=== PATIENT | male | born 1970 | race Caucasian/White ===

== ENCOUNTER 2016-07-31 15:19 | Emergency (ER) | payer OTHER ==
[2016-07-31 16:02] VITALS: BP 123/81
--- NOTE | 2016-07-31 16:35 | UC ---
FLU HPI - HPI Summary HPI Summary: 2 weeks of worsening sinus pain last fe days has had fevers and body aches--- [place] in the past month and is concerned about Lyme - History of Current Complaint Chief Complaint: UCGeneralIllness Stated Complaint: FLU SYMPTOMS Time Seen by Provider: 07/31/16 16:34 Hx Obtained From: Patient Onset/Duration: Gradual Onset, Lasting Weeks - 2, Still Present, Worse Since - past 2 days Severity Currently: Moderate Severity Initially: Mild Pain Intensity: 6 Pain Scale Used: 0-10 Numeric Associated Signs & Symptoms: Positive: Fever - 100, Nasal Congestion, Headache - Allergy/Home Medications Allergies/Adverse Reactions: Allergies Allergy/AdvReac Type Severity Reaction Status Date / Time Fentanyl Allergy Severe See Comment Verified 12/09/15 15:49 Midazolam [From Versed] Allergy Severe See Comment Verified 12/09/15 15:49 Home Medications: Home Medications Phenylephrine-Chlorpheniramine [[place] Plus Cold & 5-2-10-325 mg] [History] PMH/Surg Hx/FS Hx/Imm Hx Previously Healthy: No Endocrine History Of: Denies: Diabetes Cardiovascular History Of: Denies: Pacemaker/ICD GI/ History Of: Reports: Kidney Stones - BILATERAL, BEING WATCHED, Renal Disease - Hx of Kidney Stones Neurological History Of: Reports: Seizures - ONE TIME WITH ANESTHETIC MEDICATION -03/2014 Other History Of: Negative For: Anticoagulant Therapy - Surgical History Surgical History: Yes Surgery Procedure, Year, and Place: 1986 LEFT KNEE SURGERY TO REMOVE BONE SPUR, [place]. 04/2012 CYSTOSCOPY, LEFT RETROGRADE PYELOGRAM, LEFT URETEROSCOPY, EXTRACTION OF CALCULUS FROM LEFT URETER, LEFT URETERAL STENT INSERTION, [facility] [place]. CYSTOSCOPY RIGHT RETROGRADE, RIGHT URETERAL CALCULUS MANIPULATION, STENT INSERTION, [facility] [place]. 05/30/2012 ESWL RIGHT RENAL CALCULUS., [facility] [place]. 03/2014 LITHOTRIPSY RIGHT SIDE FOR KIDNEY STONE, [facility] [place] - Family History Known Family History: Positive: Hypertension - Social History Occupation: Employed Full-time Lives: With Family Alcohol Use: Rare Substance Use Type: None Smoking Status (MU): Never Smoked Tobacco - Immunization History Most Recent Influenza Vaccination: NONE Most Recent Tetanus Shot: 05/07/2009 Most Recent Pneumonia Vaccination: NONE Review of Systems Constitutional: Fever, Fatigue Skin: Negative Eyes: Negative ENT: Nasal Discharge Respiratory: Negative Cardiovascular: Negative Gastrointestinal: Negative Genitourinary: Negative Motor: Negative Neurovascular: Negative Musculoskeletal: Negative, Myalgia - general body aches Neurological: Headache - frontal and maxillary sinus Psychological: Negative All Other Systems Reviewed And Are Negative: Yes Physical Exam Triage Information Reviewed: Yes Appearance: Well-Nourished, Ill-Appearing - mild, Pain Distress - mild Vital Signs: Initial Vital Signs Temp 99.0 F 07/31/16 15:56 Pulse 78 07/31/16 15:56 Resp 18 07/31/16 15:56 BP 123/81 07/31/16 15:56 Pulse Ox 97 07/31/16 15:56 Vital Signs Reviewed: Yes Eye Exam: Normal Eyes: Positive: Conjunctiva Clear. Negative: Conjunctiva Inflamed, Discharge ENT Exam: Normal ENT: Positive: Normal ENT inspection, Hearing grossly normal, Pharynx normal, Nasal congestion, Nasal drainage, TMs normal. Negative: Tonsillar swelling, Tonsillar exudate, Trismus, Muffled/hoarse voice Dental Exam: Normal Neck exam: Normal Neck: Positive: Supple, Nontender, No Lymphadenopathy Respiratory Exam: Normal Respiratory: Positive: Chest non-tender, Lungs clear, Normal breath sounds, No respiratory distress, No accessory muscle use Cardiovascular Exam: Normal Cardiovascular: Positive: RRR, No Murmur, Pulses Normal, Brisk Capillary Refill Musculoskeletal Exam: Normal Musculoskeletal: Positive: Strength Intact, ROM Intact, No Edema Neurological Exam: Normal Neurological: Positive: Alert, Muscle Tone Normal Psychological Exam: Normal Skin Exam: Normal Flu Course/Dx - Course Course Of Treatment: Lyme serology, augmentin, flonase, increase fluids follow with pcp - Differential Dx/Diagnosis Differential Diagnosis/HQI/PQRI: Pneumonia, RSV, Upper Respiratory Infection Provider Diagnoses: Acute Sinusitis Discharge - Discharge Plan Condition: Stable Disposition: HOME Prescriptions: Amoxicillin/Clavulanate TAB* [Augmentin TAB 875*] 875 mg PO BID #20 tab Fluticasone NASAL SPRAY 50MCG* [Flonase NASAL SPRAY 50MCG*] 2 spray BOTH NARES DAILY #1 btl Patient Education Materials: Lyme Disease (ED), Sinusitis (ED), How to Use Nasal Oscar (ED) Referrals: Diogo Ashby MD [Primary Care Provider] - 1 Week
== END 2016-07-31 17:00 | disposition home or self-care (01) ==
LOC: UCEAST 15:19
DX: J01.90 Acute sinusitis, unspecified (principal)
CPT/HCPCS: 86618; 99212; G0463

== ENCOUNTER 2018-01-03 07:25 | Observation (INO) | payer OTHER ==
[2018-01-03] MEDS ORDERED: Aspirin 81 mg CHEW TAB* 81 MG TAB.CHEW PO ONE (07:50)
--- NOTE | 2018-01-03 07:54 | ED ---
HPI Chest Pain - HPI Summary HPI Summary: This patient is a 33 year old M presenting to ED with a chief complaint of L- sided CP since 644. The patient had just woken up before onset. The CC is described as dull, intermittent, itchy, and squeezing sensation. The patient rates the pain 3/10 in severity. Symptoms aggravated by palpation. Symptoms alleviated by nothing. Patient reports nausea, diaphoresis, and L arm numbness. Denies PMHx. FHx includes CAD aunt (age 70), grandfather (in his 30s). The patient reports he is bradycardic (near the 40s) at baseline. - History of Current Complaint Chief Complaint: EDChestWallPain Hx Obtained From: Patient Onset/Duration: Started Hours Ago - since 644 this morning, Resolved Timing: Intermittent Initial Severity: Mild Pain Intensity: 3 Pain Scale Used: 0-10 Numeric Chest Pain Location: Left Lateral Character: Dull/Aching, Pressure/Squeezing, Other: - itchy Aggravating Factor(s): Other: - palpation Alleviating Factor(s): Nothing Associated Signs and Symptoms: Positive: Other: - Patient reports nausea, diaphoresis, and L arm numbness. - Allergy/Home Medications Allergies/Adverse Reactions: Allergies Allergy/AdvReac Type Severity Reaction Status Date / Time fentanyl Allergy Severe See Comment Verified 01/03/18 07:42 midazolam [From Versed] Allergy Severe See Comment Verified 01/03/18 07:42 Home Medications: Home Medications NK [No Home Medications Reported] 01/03/18 [History Confirmed 01/03/18] PMH/Surg Hx/FS Hx/Imm Hx Endocrine/Hematology History: Denies: Hx Anticoagulant Therapy, Hx Diabetes, Hx Anemia Cardiovascular History: Denies: Hx Pacemaker/ICD GI History: Reports: Other GI Disorders - ABD PAIN 2 MONTH AGO Denies: Hx Jaundice History: Reports: Hx Kidney Stones - BILATERAL, BEING WATCHED, Hx Renal Disease - Hx of Kidney Stones, Other Problems/Disorders - LITHOTRIPSY 2014 Musculoskeletal History: Reports: Hx Back Problems, Other Musculoskeletal History - OCCASIONAL BACK PAIN FROM KIDNEY STONES BILATERAL Sensory History: Denies: Hx Contacts or Glasses, Hx Eye Injury - Metal was removed from left eye in 2011, Hx Hearing Aid Opthamlomology History: Denies: Hx Contacts or Glasses, Hx Eye Injury - Metal was removed from left eye in 2011 Neurological History: Reports: Hx Headaches, Hx Seizures - ONE TIME WITH ANESTHETIC MEDICATION -03/2014 Psychiatric History: Denies: Hx Panic Disorder - Surgical History Surgery Procedure, Year, and Place: 1986 LEFT KNEE SURGERY TO REMOVE BONE SPUR, [place]. 04/2012 CYSTOSCOPY, LEFT RETROGRADE PYELOGRAM, LEFT URETEROSCOPY, EXTRACTION OF CALCULUS FROM LEFT URETER, LEFT URETERAL STENT INSERTION, [facility] [place]. CYSTOSCOPY RIGHT RETROGRADE, RIGHT URETERAL CALCULUS MANIPULATION, STENT INSERTION, [facility] [place]. 05/30/2012 ESWL RIGHT RENAL CALCULUS., [facility] [place]. 03/2014 LITHOTRIPSY RIGHT SIDE FOR KIDNEY STONE, [facility] [place] Hx Anesthesia Reactions: Yes - STATES SEIZURE WITH ANESTHETIC (?FENTANYL) Infectious Disease History: No Infectious Disease History: Denies: Hx Clostridium Difficile, Hx Hepatitis, Hx Human Immunodeficiency Virus (HIV), Hx Shingles, Hx Tuberculosis, Traveled Outside the in Last 30 Days - Family History Known Family History: Positive: Cardiac Disease - aunt (age 70), grandfather ( in his 30s), Hypertension - Social History Alcohol Use: Rare Substance Use Type: Reports: None Smoking Status (MU): Never Smoked Tobacco Review of Systems Positive: Skin Diaphoresis Positive: Chest Pain - L-sided Positive: Nausea Positive: Numbness - in the L arm All Other Systems Reviewed And Are Negative: Yes Physical Exam - Summary Physical Exam Summary: Appearance: Well appearing, no pain distress Skin: warm, dry, reflects adequate perfusion Head/face: normal Eyes: EOMI, CHRIS ENT: normal Neck: supple, non-tender Respiratory: CTA, breath sounds present Cardiovascular: bradycardia, pulses symmetrical Abdomen: non-tender, soft Bowel: present Musculoskeletal: normal, strength/ROM intact Neuro: normal, sensory motor intact, A&Ox3 Triage Information Reviewed: Yes Vital Signs On Initial Exam: Initial Vitals Temp Pulse Resp BP Pulse Ox 96.2 F 49 16 128/79 98 01/03/18 07:27 01/03/18 07:27 01/03/18 07:27 01/03/18 07:27 01/03/18 07:27 Vital Signs Reviewed: Yes Diagnostics - Vital Signs Vital Signs Temp Pulse Resp BP Pulse Ox 01/03/18 07:27 96.2 F 49 16 128/79 98 - Laboratory Result Diagrams: 01/03/18 08:28 09/26/18 08:28 Lab Statement: Any lab studies that have been ordered have been reviewed, and results considered in the medical decision making process. - Radiology CXR Radiology Interpretation Completed By: Radiologist - No evidence for acute intrathoracic disease. ED physician has reviewed this radiology report. - EKG 0736 Cardiac Rate: Bradycardia - 39 BPM EKG Rhythm: Sinus Bradycardia EKG Interpretation: early repolarization in the lateral leads 0852 Cardiac Rate: Bradycardia - 39 BPM EKG Rhythm: Sinus Bradycardia EKG Interpretation: No acute changes Re-Evaluation - Re-Evaluation First Eval Re-Evaluation Time: 09:16 Comment: Discussed with patient about consult with the electronic sensing equipment assembler Dr. Summers and plan to do a stress test. Second Eval Re-Evaluation Time: 13:13 Comment: Discussed plan for admission with the patient. Patient understands and agrees. Chest Pain Course/Dx - Course Assessment/Plan: This patient is a 33 year old M presenting to ED with a chief complaint of L-sided CP since 644. CXR reveals no evidence for acute intrathoracic disease. EKG done at 0736 shows sinus faiza at 39 BPM and early repolarization in the lateral leads. Repeat EKG done at 0852 shows sinus faiza at 39 BPM and no acute changes. In the ED course, the patient was given ASA, Motrin, and Nitro. Blood work/UA obtained. The patient will be admitted to Dr. Soni. Patient understands and agrees with this plan. - Chest Pain Differential Diagnosis/HQI/PQRI: Acute AL, ACS, Chest Wall, Other: - chest pain , symptomatic bradycardia, rule out ACS - Diagnoses Provider Diagnoses: Chest pain, Symptomatic bradycardia - Provider Notifications Discussed Care Of Patient With: Saige Summers Time Discussed With Above Provider: 07:51 Instructed by Provider To: Other - Consulted Dr. Summers who will come see the patient in the ED in about 5-[address] Summers in the ED at 0843 who recommends to give the patient a stress test. Talked with Dr. Wright at 1234 who said that the stress test could not be completed because the patient began feeling dizzy and started having CP. He says that the patient should be admitted. Consulted Dr. Ashby at 1315 who said to admit the patient and he will see the patient tomorrow. Consulted Dr. Kardon at 1320 who accepts the patient for admission. - Critical Care Time Critical Care Time: 30-74 min - 30 minutes Discharge - Sign-Out/Discharge Documenting (check all that apply): Patient Departure - Discharge Plan Condition: Stable Disposition: ADMITTED TO [facility] Referrals: Diogo Ashby MD [Primary Care Provider] - - Billing Disposition and Condition Condition: STABLE Disposition: Admitted to [facility] - Attestation Statements Document Initiated by Scribe: Yes Documenting Scribe: Demetrius Mansfield Provider For Whom [facility] is Documenting (Include Credential): Valeriy Albrecht MD Scribe Attestation: Demetrius Pete, scribed for Valeriy Albrecht MD on 01/03/18 at 1417. Scribe Documentation Reviewed: Yes Provider Attestation: The documentation as recorded by the Demetrius de leon accurately reflects the service I personally performed and the decisions made by , Valeriy Albrecht MD
[2018-01-03 08:40] LABS: ABS Basophils 0.1 10^3/ul (0-0.2); ABS Eosinophils 0.2 10^3/ul (0-0.6); ABS Monocytes 0.5 10^3/ul (0-0.8); ABS Neutrophils 3.1 10^3/ul (1.5-7.7); ABS Nucleated RBC 0 10^3/ul; Eosinophil % 3.6 % (0-6); Hematocrit 40 % (42-52); Hemoglobin 13.7 g/dl (14.0-18.0); Lymphocyte % 21.1 % (25-47); Mean Corpuscular HGB Conc 34 g/dl (31-36); Mean Corpuscular Hemoglobin 31 pg (27-31); Mean Corpuscular Volume 92 fL (80-94); Mean Platelet Volume 7.2 um3 (7.4-10.4); Nucleated Red Blood Cells % 0; Platelet Count 224 10^3/ul (150-450); Red Blood Count 4.39 10^6/ul (4.00-5.40); Red Cell Distribution Width 13 % (10.5-15); White Blood Count 4.9 10^3/ul (3.5-10.8)
--- NOTE | 2018-01-03 08:48 | RAD ---
Indication: Chest pain started this morning. Comparison: September 09, 2015 CT abdomen. Technique: Upright AP 0805 hours Report: Clear lungs and pleural spaces. Negative for pneumothorax. The heart, pulmonary vasculature, and mediastinal contours are unremarkable. Unremarkable osseous structures and soft tissue contours. IMPRESSION: #. No evidence for acute intrathoracic disease.
[2018-01-03] MEDS ORDERED: Nitroglycerin 0.1 mg/Hr PATCH* (2.5 MG) TRANSDERM ONE (08:52)
[2018-01-03 08:57] LABS: INR 0.93 (0.77-1.02)
[2018-01-03] MEDS ORDERED: Ibuprofen TAB* 800 MG PO ONE (08:57)
[2018-01-03] MEDS ORDERED: NS 0.9% 1000 ML* 1,000 ML IV ONE (14:29)
[2018-01-03] MEDS ORDERED: NS 0.9% 1000 ML* 1,000 ML IV SCH (15:45)
--- NOTE | 2018-01-03 18:12 | ECHO ---
Patient: JALEESA NGO [facility] Rec#: [id number] : 1970 Date: 01/03/2018 Age: 47y Height: 175 cm / 68.9 in Weight: 74.84 kg / 164.9 lbs Sex: M BSA: 1.9 Room#: -18 Admit Date#: 01/03/2018 Type: Inpatient Referring: Sherwin Genao MD Reading: Saige Summers MD Oceanographic Meteorologist: Marva Oswald RDCS CC: Diogo Ashby MD Transthoracic Echocardiogram Indication: Chest pain BP: 112/65 HR: 37 Rhythm: Bradycardia Findings History: Family history of CAD. Technical Comments: The study quality is good. Completed at 1640. Left Ventricle: The left ventricular chamber size is mildly dilated. There is no left ventricular hypertrophy. Global left ventricular wall motion and contractility are within normal limits. There is normal left ventricular systolic function. The estimated ejection fraction is 55-60%. Normal left ventricular diastolic filling is observed. Left Atrium: The left atrium is mildly dilated. Right Ventricle: Moderator Band present. The right ventricle is mildly dilated. The right ventricular global systolic function is normal. Right Atrium: The right atrium is mildly dilated. Aortic Valve: The aortic valve is trileaflet. There is no evidence of aortic valve thickening. There is no evidence of aortic regurgitation. There is no evidence of aortic stenosis. Mitral Valve: The mitral valve leaflets are mildly thickened. There is mild mitral regurgitation. There is no evidence of mitral stenosis. Tricuspid Valve: The tricuspid valve leaflets are normal. There is mild to moderate tricuspid regurgitation. The right ventricular systolic pressure is estimated at 26 mmHg. No pulmonary hypertension is noted. There is no tricuspid stenosis. Pulmonic Valve: The pulmonic valve appears normal. There is trace to mild pulmonic regurgitation. There is no pulmonic stenosis. Pericardium: There is no significant pericardial effusion. Aorta: There is no dilatation of the ascending aorta. There is no dilatation of the aortic arch. The aortic root is normal in size. Pulmonary Artery: The main pulmonary artery appears normal. Venous: The inferior vena cava appears normal in size. There is a greater than 50% respiratory change in the inferior vena cava dimension. Conclusions The left ventricular chamber size is mildly dilated. Global left ventricular wall motion and contractility are within normal limits. The estimated ejection fraction is 55-60%. The right ventricle is mildly dilated. The right ventricular global systolic function is normal. The left atrium is mildly dilated. The right atrium is mildly dilated. There is mild mitral regurgitation. There is mild to moderate tricuspid regurgitation. The right ventricular systolic pressure is estimated at 26 mmHg (normal). No prior echo to compare. Measurements Name Value Normal Range RVIDd (AP) 2D 2.8 cm (0.9 - 2.6) RVDdMajor (2D) 4.6 cm (2.2 - 4.4) RAd ISD 4CH 5.1 cm (3.4 - 4.9) RA (A4C)W 4.9 cm (2.9 - 4.6) IVSd (2D) 0.7 cm (0.6 - 1) LVPWd (2D) 0.7 cm (0.6 - 1) LVIDd (2D) 5.7 cm (3.6 - 5.4) LVIDs (2D) 3.2 cm - LV FS (2D) 45 % (25 - 45) Aortic Annulus 2.3 cm (1.4 - 2.6) Ao root diameter (2D) 2.9 cm (2.1 - 3.5) Ascending Ao 2.7 cm (2.1 - 3.4) Aortic arch 2.4 cm (1.8 - 3.4) LA dimension (AP) 2D 4 cm (2.3 - 3.8) LAd ISD 4CH 5 cm (2.9 - 5.3) LA ISD 4CH W 4.1 cm (2.5 - 4.5) Name Value Normal Range LA ESV BP (A/L) index 39 ml/m2 - Name Value Normal Range MV E-wave Vmax 0.7 m/sec - MV deceleration time 275 msec - MV A-wave Vmax 0.3 m/sec - MV E:A ratio 1.9 ratio - LV septal e' Vmax 0.12 m/sec - LV lateral e' Vmax 0.13 m/sec - LV E:e' septal ratio 5.83 ratio - LV E:e' lateral ratio 5.38 ratio - Name Value Normal Range AV Vmax 1.2 m/sec - AV VTI 30.3 cm - AV peak gradient 6 mmHg - AV mean gradient 4 mmHg - LVOT Vmax 0.9 m/sec - LVOT VTI 22 cm - LVOT peak gradient 4 mmHg - LVOT mean gradient 2 mmHg - CANDACE Vmax 1 m/sec - Name Value Normal Range TR Vmax 2.4 m/sec - TR peak gradient 23 mmHg - RAP 3 mmHg - RVSP 26 mmHg - IVC diameter 1.9 cm - Name Value Normal Range PV Vmax 1 m/sec - PV peak gradient 4 mmHg - IA end-diastolic Vmax 0.9 m/sec -
--- NOTE | 2018-01-03 19:19 | RAD ---
EXAM: US Duplex Bilateral Extracranial Arteries CLINICAL HISTORY: 47 years old, male; Signs and symptoms; Syncope and collapse; Additional info: Near syncope during stress test TECHNIQUE: Real-time duplex ultrasound scan of the extracranial arteries integrating B-mode two-dimensional vascular structure, Doppler spectral analysis and color flow Doppler imaging. COMPARISON: No relevant prior studies available. FINDINGS: Right common carotid artery: Unremarkable. No occlusion or significant stenosis on color flow and spectral Doppler imaging. Right internal carotid artery: Unremarkable. No occlusion or significant stenosis on color flow and spectral Doppler imaging. Right external carotid artery: Unremarkable. No occlusion or significant stenosis on color flow and spectral Doppler imaging. Right vertebral artery: Unremarkable. Antegrade flow. Right ICA/CCA ratio: 0.81. Within normal limits. Left common carotid artery: Unremarkable. No occlusion or significant stenosis on color flow and spectral Doppler imaging. Left internal carotid artery: Unremarkable. No occlusion or significant stenosis on color flow and spectral Doppler imaging. Left external carotid artery: Unremarkable. No occlusion or significant stenosis on color flow and spectral Doppler imaging. Left vertebral artery: Unremarkable. Antegrade flow. Left ICA/CCA ratio: 1.0. Within normal limits. Lymph nodes: Unremarkable. No lymphadenopathy. CAROTID STENOSIS REFERENCE USING SRU CRITERIA: Mild - <50% stenosis. ICA PSV is less than 125 cm/second and plaque or intimal thickening is visible. Moderate - 50-69% stenosis. ICA PSV is 125 to 230 cm/second and plaque is visible. Severe - 70-94% stenosis. ICA PSV is more than 230 cm/second and visible plaque with lumen narrowing is seen. Near occlusion - 95-99% stenosis. ICA PSV is variable and significant plaque with luminal narrowing is seen. Occluded - 100% stenosis. No flow identified. IMPRESSION: Normal duplex ultrasound of the neck.
[2018-01-03] MEDS: Ondansetron INJ* 2 MG/ML VIAL IV PRN (19:21)
[2018-01-03] MEDS: Acetaminophen TAB* 325 MG PO PRN (19:23)
--- NOTE | 2018-01-03 22:27 | HP ---
ADMISSION HISTORY AND PHYSICAL: DATE OF ADMISSION: 01/03/18 PRIMARY CARE PROVIDER: Dr. Ashby. HEALTHCARE PROXY: His , Arcelia, present during the interview. CODE STATUS: Full. SOURCE OF INFORMATION: History obtained from interview with the patient, discussion with Dr. Albrecht in the emergency room, and review of medical records including records stress test earlier today. RELIABILITY: Good. CHIEF COMPLAINT: Chest pain. HISTORY OF PRESENT ILLNESS: This is a 47-year-old man relatively healthy except for recurrent nephrolithiasis with multiple ureteroscopies and ureteral stents, who has had about 1-12 of fatigue and his stomach feeling again "off", decreased appetite, a little nausea, but no fevers, chills, night sweats , headaches, visual changes, sick contacts, rhinorrhea, sore throat, chest pain or shortness of breath. He woke this morning around 7 a.m. from sleep with left -sided substernal chest pain that was described as pounding, radiating to his left arm and elbow, that was described as approximately 5/10 in severity, it was associated with nausea with no emesis. No diaphoresis, lightheadedness, loss of consciousness, or shortness of breath. He proceeded with his to the emergency room via private vehicle, where he was evaluated and referred for exercise stress testing from the emergency room. During the course of the stress test, Dr. Wright notes that he was exercised to a Angel Luis protocol. He was able to exercise to 6 minutes and 7 seconds, but acutely stopped when he developed dizziness and nausea. Dr. Wright notes that he was less responsive and was not responding to Dr. Wright's request to straighten his arm. The patient's heart rate only reached to maximum of 56% with no EKG changes of ischemia, no arrhythmias, appropriate blood pressure increase. He had mild chest discomfort before starting the exercise, which was unchanged with exercise. The patient noted he had narrowing of his vision. He does not remember the episode where he became less responsive, but did recover after the stress test was stopped. The patient was seen by this author after the failed stress test was complicating intervening symptoms. The patient did reach maximum heart rate of 97 during the test with a target heart rate of 172. The patient notes that additionally he does travel frequently domestically, at least weekly. His last trip to [facility] last week, which he drove. He does have tick exposure and removed at least one in October for which he believes he was treated by Dr. Ashby. He has no no other known sick contacts. When seen by this author, chest discomfort had improved, although he did have some discomfort in his left arm. PAST MEDICAL HISTORY: Nephrolithiasis, ureteroscopy with approximately 3 to 4 stents, hernia repair. MEDICATIONS: None. No [id number] as well. ALLERGIES: FENTANYL and VERSED, which cause seizure like activity after OR procedure. FAMILY HISTORY: Mother with COPD. Paternal grandfather with CAD in his 70s. Maternal grandmother with CAD in her 70s. SOCIAL HISTORY: No tobacco. Several alcohol drinks per month. No illicits. 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 REVIEW OF SYSTEMS: As per HPI. Otherwise, all other systems were negative. PHYSICAL EXAMINATION GENERAL: Lying flat in bed, interactive, pleasant, in no apparent distress. VITAL SIGNS: In the emergency room, 120/58, heart rate was in 30s, increased to 60 with kicking of his legs for exercise, respiratory rate is 14, he is 97% on room air with a T-max of 96.2. HEENT: Oropharynx is clear. He has moist mucous membranes. Sclerae are anicteric. NECK: He has non-elevated JVD. No carotid bruit. No cervical or supraclavicular lymphadenopathy. LUNGS: His lungs are clear to auscultation. HEART: He has bradycardic heart rate with a regular rhythm. No murmurs, rubs or gallops. EXTREMITIES: Warm and well perfused without clubbing, cyanosis or edema. He has less than 2 seconds cap refill with strong peripheral pulses. NEUROLOGIC: He is alert and oriented x3. His cranial nerves II through XII are intact. DIAGNOSTIC STUDIES/LAB DATA: Labs reviewed, notable for creatinine of 1.38. Troponin I is 0.00 on two consecutive checks. Lactic acid is 0.7. Hemoglobin of 13.7, which is consistent with prior testing. Data reviewed, stress test as indicated in the body of this report. Chest x-ray, impression: No active cardiopulmonary disease. EKG: Sinus bradycardia rate of 39, normal limit axis and intervals, good R- wave progression. No ST or T-wave changes. No Q-waves. ASSESSMENT AND PLAN: This is a 47-year-old gentleman with insignificant past medical history presenting with chest pain. Hospital stay complicated by the incomplete stress test secondary to dizziness. 1. Chest pain. Unable to rule out underlying ischemic pathology, as the patient did not reach his target heart rate. He has two negative troponins at this point. I will admit to telemetry and continue to monitor. Check transthoracic echocardiogram as well as add on D-dimer. If D-dimer is elevated , we will check CTA of his chest to rule out PE, limiting forward flow or limiting cardiac output, which may have led to his dizziness during his stress test. I have placed a cardiac consultation for assistance and further ischemic evaluation in the setting of his exercise stress test, which required stopping due to his symptoms. 2. Bradycardia. The patient is noted to be bradycardic in the past when he has been hospitalized. 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 He is able to increase his heart rate with minimal exercise in the bed, so is not the etiology for his dizziness at this time. However, we will check Lyme serologies. He has noticed to have ticks on him in the past. He will have cardiac consultation and placed on telemetry. 3. Kidney injury. Unclear if acute and/or chronic. We will give a liter of normal saline overnight. Recheck BMP in the morning. 4. DVT prophylaxis. Low risk, ambulate ad-johnny, as well as JAYSHREE stockings. TIME SPENT: Greater than 60 minutes were spent on admission of this patient, greater than half of which spent at bedside discussing with the patient and his . [id number]/[facility] #: [id number] YOVANA
--- NOTE | 2018-01-04 07:49 | PN ---
Subjective - Subjective Reason for Note: Discharge Note History: Contingent Discharge Summary - depends upon results of todays investigations/ consultation I have reviewed Jaleesa Ngo presentation with the patient, Dr. Sherwin Genao in person and his written admitting H and P and also the electronic medical record. He has not felt well for 1 week. He has had no contacts with infection. He has traveled. 2 months ago he had a tick bite and was seen at my office and given doxycycline. He has maintained his exercise, but has had decreased tolerance. I note the episode during his attempted stress test yesterday. This morning he has a headache - bifrontal, with mild photophobia. He also has neck pain. He has no chest pain. He has no nausea/vomiting and he hasn't had a BM for a couple of days. He has no shortness of breath, palpitations. Active Problems: Active Problems Bradycardia (Acute) R00.1 Chest pain (Acute) R07.9 Headache (Acute 03/31/14) R51 DVT prophylaxis (Chronic 03/31/14) [id number] Full code status (Chronic 03/31/14) Z78.9 History of lithotripsy (Chronic 03/31/14) Z98.89 Nephrolithiasis (Chronic) N20.0 Current Medications: Current Medications Acetaminophen (Tylenol Tab*) 650 mg PO Q4H PRN PRN Reason: FEVER/PAIN Last Admin: 01/03/18 19:23 Dose: 650 mg Ondansetron HCl (Zofran Inj*) 4 mg IV Q4H PRN PRN Reason: NAUSEA Last Admin: 01/03/18 19:21 Dose: 4 mg Home Medications: Home Medications Medication Instructions Recorded Confirmed Type NK [No Home Medications Reported] 01/03/18 01/03/18 History Allergies: Allergies Allergy/AdvReac Type Severity Reaction Status Date / Time fentanyl Allergy Severe See Comment Verified 01/03/18 07:42 midazolam [From Versed] Allergy Severe See Comment Verified 01/03/18 07:42 Objective - Vital Signs Vital Signs: Vital Signs 01/03/18 01/03/18 01/03/18 07:42 08:00 08:12 Temperature Pulse Rate 47 43 42 Respiratory 17 17 15 Rate Blood Pressure 116/77 115/74 (mmHg) O2 Sat by Pulse 97 96 96 Oximetry 01/03/18 01/03/18 01/03/18 08:42 09:00 09:12 Temperature Pulse Rate 42 38 39 Respiratory 11 16 15 Rate Blood Pressure 108/63 108/71 (mmHg) O2 Sat by Pulse 97 97 98 Oximetry 01/03/18 01/03/18 01/03/18 09:42 10:00 10:03 Temperature Pulse Rate 37 41 43 Respiratory 14 15 12 Rate Blood Pressure 91/61 97/60 (mmHg) O2 Sat by Pulse 97 97 97 Oximetry 01/03/18 01/03/18 01/03/18 10:12 10:42 11:00 Temperature Pulse Rate 40 43 42 Respiratory 13 13 14 Rate Blood Pressure 97/59 100/59 (mmHg) O2 Sat by Pulse 97 98 96 Oximetry 01/03/18 01/03/18 01/03/18 11:12 12:56 13:00 Temperature Pulse Rate 38 40 40 Respiratory 13 12 16 Rate Blood Pressure 100/55 122/67 (mmHg) O2 Sat by Pulse 97 98 96 Oximetry 01/03/18 01/03/18 01/03/18 13:26 13:56 14:00 Temperature Pulse Rate 39 42 40 Respiratory 15 18 16 Rate Blood Pressure 106/62 103/65 (mmHg) O2 Sat by Pulse 96 96 97 Oximetry 01/03/18 01/03/18 01/03/18 14:27 14:54 15:00 Temperature Pulse Rate 36 36 37 Respiratory 12 14 14 Rate Blood Pressure 87/46 112/65 (mmHg) O2 Sat by Pulse 96 97 97 Oximetry 01/03/18 01/03/18 01/03/18 15:09 15:25 15:45 Temperature Pulse Rate 38 39 35 Respiratory 11 13 14 Rate Blood Pressure 103/64 120/58 98/60 (mmHg) O2 Sat by Pulse 97 97 97 Oximetry 01/03/18 01/03/18 01/03/18 16:00 16:14 16:25 Temperature 98.4 F Pulse Rate 38 39 38 Respiratory 14 15 15 Rate Blood Pressure 102/60 102/60 (mmHg) O2 Sat by Pulse 97 95 95 Oximetry 01/03/18 01/03/18 01/03/18 16:55 17:16 19:03 Temperature 97.4 F 97.4 F Pulse Rate 38 40 Respiratory 14 14 16 Rate Blood Pressure 115/67 101/55 (mmHg) O2 Sat by Pulse 99 99 Oximetry 01/04/18 01/04/18 00:10 03:51 Temperature 97.5 F 97.6 F Pulse Rate 39 Respiratory 18 16 Rate Blood Pressure 95/55 91/52 (mmHg) O2 Sat by Pulse 98 98 Oximetry - Intake and Output Intake and Output: Intake & Output 01/01/18 01/02/18 01/03/18 01/04/18 11:59 11:59 11:59 11:59 Intake Total 1920 Balance 1920 Weight 165 lb 168 lb 14.4 oz Intake: IV Fluids 1800 Oral 120 Other: Estimated Void Medium # Bowel Movements 0 # Voids 2 ADLs: Meal Record Start: 01/03/18 16: 28 Freq: DAILY@0900,1400,1800 Status: Active Protocol: Created 01/03/18 16:28 System (Rec: 01/03/18 16:28 System [id number]) Document 01/03/18 18:00 [id number] (Rec: 01/03/18 21:22 [id number]) Intake and Output Start: 01/03/18 07: 32 Freq: Status: Active Protocol: Created 01/03/18 07:32 System (Rec: 01/03/18 07:32 System [id number]) Intake and Output Start: 01/03/18 16: 28 Freq: DAILY@0600,1400,2200 Status: Active Protocol: Created 01/03/18 16:28 System (Rec: 01/03/18 16:28 System [email or web address]) Document 01/03/18 21:46 [id number] (Rec: 01/03/18 21:47 [id number] [email or web address]) Document 01/04/18 06:00 [id number] (Rec: 01/04/18 06:37 [id number]) - Physical Exam General Physical Exam Comment: warm and well perfused - hemodynamically stable. General: No Cyanosis, No Anemia, No Jaundice, No Clubbing Lungs and Chest: Yes: Chest Expansion Full, Chest Expansion Symetrica, Percussion Note Resonant, Vessicular Breath Sounds. No: Crackles, Wheezes, Respiratory Distress, Use of Accessory Muscles Heart Rate and Rhythm: Bradycardia JVP: Not Elevated Additional Cardiovascular: Yes: Normal Heart Sounds. No: Heart Murmur, Carotid Bruits, Pedal Edema Abdominal Exam: Yes: Soft, Bowel Sounds Present. No: Distention, Abdominal Mass , Hepatomegaly, Splenomegaly, Abdominal Tenderness, Guarding, Rebound Tenderness - Neuro Orientation: A/O x3 Speech: Normal Results - Results Lab Results: Laboratory Results - last 24 hr 01/03/18 01/03/18 01/03/18 08:28 08:28 08:28 WBC 4.9 RBC 4.39 Hgb 13.7 L Hct 40 L MCV 92 MCH 31 MCHC 34 RDW 13 Plt Count 224 MPV 7.2 L Neut % (Auto) 64.3 Lymph % (Auto) 21.1 L [place] % (Auto) 10.0 H Eos % (Auto) 3.6 Baso % (Auto) 1.0 Absolute Neuts (auto) 3.1 Absolute Lymphs (auto) 1.0 Absolute Monos (auto) 0.5 Absolute Eos (auto) 0.2 Absolute Basos (auto) 0.1 Absolute Nucleated RBC 0 Nucleated RBC % 0 INR (Anticoag Therapy) 0.93 APTT 28.5 D-Dimer, Quantitative Sodium 140 Potassium 4.3 Chloride 109 Carbon Dioxide 27 Anion Gap 4 BUN 19 Creatinine 1.38 H Est GFR ( Amer) 66.5 Est GFR (Non-Af Amer) 55.0 BUN/Creatinine Ratio 13.8 Glucose 99 Lactic Acid Calcium 8.9 Total Bilirubin 0.60 AST 34 ALT 37 Alkaline Phosphatase 68 Troponin I 0.00 Total Protein 6.4 Albumin 3.9 Globulin 2.5 Albumin/Globulin Ratio 1.6 01/03/18 01/03/18 01/03/18 08:28 11:25 15:47 WBC RBC Hgb Hct MCV MCH MCHC RDW Plt Count MPV Neut % (Auto) Lymph % (Auto) [place] % (Auto) Eos % (Auto) Baso % (Auto) Absolute Neuts (auto) Absolute Lymphs (auto) Absolute Monos (auto) Absolute Eos (auto) Absolute Basos (auto) Absolute Nucleated RBC Nucleated RBC % INR (Anticoag Therapy) APTT D-Dimer, Quantitative < 200 Sodium Potassium Chloride Carbon Dioxide Anion Gap BUN Creatinine Est GFR ( Amer) Est GFR (Non-Af Amer) BUN/Creatinine Ratio Glucose Lactic Acid 0.7 Calcium Total Bilirubin AST ALT Alkaline Phosphatase Troponin I 0.00 Total Protein Albumin Globulin Albumin/Globulin Ratio Radiology Results: Patient Name: JALEESA NGO Medical Record#: [id number] Ordering Physician: Valeriy Albrecht MD Acct.#: [id number] : 1970 Age: 47 Sex: M Location: EMERGENCY DEPARTMENT Exam Date: 01/03/18 0750 ADM Status: REG ER Order Information: CHEST AP PORTABLE Accession Number: [id number] CPT: 90272 Indication: Chest pain started this morning. Comparison: September 09, 2015 CT abdomen. Technique: Upright AP 0805 hours Report: Clear lungs and pleural spaces. Negative for pneumothorax. The heart, pulmonary vasculature, and mediastinal contours are unremarkable. Unremarkable osseous structures and soft tissue contours. IMPRESSION: #. No evidence for acute intrathoracic disease. <Electronically signed by Charly Reed MD in OV> 01/03/18843 Dictated By: Charly Reed MD Dictated Date/Time: 01/03/18843 Transcribed Date/Time: 01/03/18842 Copy to: Patient Name: JALEESA NGO Medical Record#: [id number] Ordering Physician: Sherwin Genao MD Acct.#: [id number] : 1970 Age: 47 Sex: M Location: [address] [place] [address]/TELEMETRY Exam Date: 01/03/18 1536 ADM Status: ADM Tomas Order Information: VL CAROTID BILATERAL Accession Number: [id number] CPT: 02420 EXAM: US Duplex Bilateral Extracranial Arteries CLINICAL HISTORY: 47 years old, male; Signs and symptoms; Syncope and collapse; Additional info: Near syncope during stress test TECHNIQUE: Real-time duplex ultrasound scan of the extracranial arteries integrating B-mode two-dimensional vascular structure, Doppler spectral analysis and color flow Doppler imaging. COMPARISON: No relevant prior studies available. FINDINGS: Right common carotid artery: Unremarkable. No occlusion or significant stenosis on color flow and spectral Doppler imaging. Right internal carotid artery: Unremarkable. No occlusion or significant stenosis on color flow and spectral Doppler imaging. Right external carotid artery: Unremarkable. No occlusion or significant stenosis on color flow and spectral Doppler imaging. Right vertebral artery: Unremarkable. Antegrade flow. Right ICA/CCA ratio: 0.81. Within normal limits. Left common carotid artery: Unremarkable. No occlusion or significant stenosis on color flow and spectral Doppler imaging. Left internal carotid artery: Unremarkable. No occlusion or significant stenosis on color flow and spectral Doppler imaging. Left external carotid artery: Unremarkable. No occlusion or significant stenosis on color flow and spectral Doppler imaging. Left vertebral artery: Unremarkable. Antegrade flow. Left ICA/CCA ratio: 1.0. Within normal limits. Lymph nodes: Unremarkable. No lymphadenopathy. CAROTID STENOSIS REFERENCE USING SRU CRITERIA: Mild - <50% stenosis. ICA PSV is less than 125 cm/second and plaque or intimal thickening is visible. Moderate - 50-69% stenosis. ICA PSV is 125 to 230 cm/second and plaque is visible. Severe - 70-94% stenosis. ICA PSV is more than 230 cm/second and visible plaque with lumen narrowing is seen. Near occlusion - 95-99% stenosis. ICA PSV is variable and significant plaque with luminal narrowing is seen. Occluded - 100% stenosis. No flow identified. IMPRESSION: Normal duplex ultrasound of the neck. This report is only to be considered final once signed by the Provider(s) as displayed in the "<Electronically Signed by >" field (s). Absence of a signature indicates the report is in a draft status and still needs to be finalized. In the event this document was created by someone other than the signing Provider, the individual initiating the document will be listed in the "Entered by:" or "Dictated by:" fan. 1 of 2 EKG Report: Sinus bradycardia: rate 39 NJ 185 QTc 415 QRS axis 57 early repolarization pattern. T lead III inverted Other Results/Reports: Transthoracic echocardiogram Conclusions The left ventricular chamber size is mildly dilated. Global left ventricular wall motion and contractility are within normal limits. The estimated ejection fraction is 55-60%. The right ventricle is mildly dilated. The right ventricular global systolic function is normal. The left atrium is mildly dilated. The right atrium is mildly dilated. There is mild mitral regurgitation. There is mild to moderate tricuspid regurgitation. The right ventricular systolic pressure is estimated at 26 mmHg (normal). Assessment - Problem List Assessment: Patient Problems Bradycardia (Acute) Chest pain (Acute) Headache (Acute 03/31/14) DVT prophylaxis (Chronic 03/31/14) Full code status (Chronic 03/31/14) History of lithotripsy (Chronic 03/31/14) Nephrolithiasis (Chronic) History of umbilical hernia repair (Chronic) Plan: Chest pain (Acute) This woke him yesterday. It is concerning given its location and radiation. He has no risk factors and his physically fit - he exercises daily with aerobic and strength training. His troponin I series is negative. His echocardiogram isn't completely normal - he has some dilation of LV and RV, but otherwise nothing specific. I have discussed his case with cardiology - for an nuclear medicine stress test which can be changed to a lexiscan if he doesn't tolerate the test. Bradycardia (Acute) I will check a TSH/FT4/T3 total. This is most likely vagal tone as he is physically fit. Headache (Acute 03/31/14) He also has some neck pain. He has been sick for for 1 week - possibly a viral syndrome of some sort. His lymphocyte% is reduced and his monocytes slightly elevated. I will check a CRP and sed rate. DVT prophylaxis (Chronic 03/31/14) Full code status (Chronic 03/31/14) History of lithotripsy (Chronic 03/31/14) Nephrolithiasis (Chronic) History of umbilical hernia repair (Chronic) I discussed the above with the patient and he agrees with the plan. He understands that if nothing is found and he is feeling improved, he will be able to go home for follow up as an outpatient.
[2018-01-04] MEDS: Acetaminophen TAB* 325 MG PO PRN (08:05)
[2018-01-04 08:11] LABS: EGFR Non-African American 62.2 (>60)
[2018-01-04] MEDS: Ondansetron INJ* 2 MG/ML VIAL IV PRN (09:33)
[2018-01-04 14:15] VITALS: BP 108/61
[2018-01-04] MEDS ORDERED: Regadenoson* 0.4 MG/5 ML SYRINGE ONE (14:21)
--- NOTE | 2018-01-04 14:21 | CONSULT ---
Subjective Date of Service: 01/04/18 Interval History: Admission Date: 01/03/18 Consult date 01/04/2018 PRIMARY CARE PROVIDER: Dr. Ashby. CHIEF COMPLAINT: Chest pain. Reason for consult: Chest pain HISTORY OF PRESENT ILLNESS: Ayo Aguayo is a 47 year old man who exercises regularly every day a week doing ellipitical and/or weight lifting. The night before admission he was doing several different tricep building weight lifting. He was admitted with fatigue, nausea, malaise. He developed headache while inpatient and still has this He had woke up day of admission left upper chest radiating to left arm felt like pounding. He has intermittent marked asymptomatic sinus bradycardia in setting of relatively young age, aerobic conditioning and what appears to be a high vagal tone. Yesterday he had a stress EKG in which he had to stop at 6 minutes due to confusion and narrowed vision. Today he had mild chest discomfort at baseline and treadmill was repeated. He had an entirely normal stress ekg with millan treadmill score of 15. His mild baseline chest discomfort resolved by stage II. The discomfort was not reproducible prior to this. . PAST MEDICAL HISTORY: Nephrolithiasis, ureteroscopy with approximately 3 to 4 stents hernia repair. Recent tick bite on doxycycline MEDICATIONS: None. ALLERGIES: FENTANYL and VERSED, which cause seizure like activity after OR procedure. FAMILY HISTORY: Mother with COPD. Paternal grandfather with CAD in his 70s. Maternal grandmother with CAD in her 70s. SOCIAL HISTORY: No tobacco. Several alcohol drinks per month. No illicits. 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 Medications Active Medications: Acetaminophen (Tylenol Tab*) 650 mg PO Q4H PRN PRN Reason: FEVER/PAIN Last Admin: 01/04/18 08:05 Dose: 650 mg Ondansetron HCl (Zofran Inj*) 4 mg IV Q4H PRN PRN Reason: NAUSEA Last Admin: 01/04/18 09:33 Dose: 4 mg Home Medications: NK [No Home Medications Reported] 01/03/18 [History Confirmed 01/03/18] Review of Systems - Measurements Intake and Output: Intake and Output Last 24 Hours 01/02/18 01/03/18 01/04/18 01/05/18 06:59 06:59 06:59 06:59 Intake Total 0 10 Balance 0 10 Weight 168 lb 14.4 oz Intake: IV Fluids 1800 10 Oral 120 Other: Estimated Void Medium # Bowel Movements 0 # Voids 2 - Review of Systems Constitutional Symptoms: Positive: Weakness, Fatigue Dermatology: Negative: Skin Lesions, Cancer HEENT: Negative: Change in Hearing, Vertigo Eyes: Negative: Change in Vision, Double Vision Thyroid: Negative: Cold Intolerance, Heat Intolerance, Sweatiness, Primary Hypothyroidism, Primary Hyperthyroidism Pulmonary: Negative: Cough, Sputum, Hemoptysis, Wheezing, Respiratory Distress, Shortness of Breath, COPD, Asthma, Exercise Intolerance, Home Oxygen Cardiology: Positive: Chest Pain Negative: Shortness of Breath, Palpitations, Swelling of Ankles, Peripheral Vascular Dis, Edema, Syncope, Claudication, Paroxysmal Nocturnal Dyspnea, Orthopnea Gastroenterology: Positive: Nausea, Anorexia Negative: Heartburn, Constipation, Diarrhea, Haematemesis, Melena Genital - Urinary: Negative: Dysuria, Hematuria Musculoskeletal: Negative: Joint Pain, Joint Stiffness Endocrinology: Positive: Thyroid Problems Negative: Obesity, Diabetes, Hyperglycemia, Hypoglycemia, Polydipsia, Polyuria Hematologic/Lymphatic: Negative: Use of Anticoagulant, Use of Antiplatelet Drugs Neurology: Positive: Headaches Negative: Change in Balancing, Change in Coordination, Change in Speech, Change in Sphincter Function, Change in Walking, Hx of Stroke\TIA, Hx Seizures Psychiatry: Negative: Unusual Anxiety, Suicidal Ideation Allergic/Immunologic: Negative: Hx Anaphylaxis, Hx Angioedema, Hx Environmental Allergies, Hx HIV, Immunocompromise Review of Systems Statement: All other review of systems negative, unless stated above. Objective Vital Signs: Temp Pulse Resp BP Pulse Ox 97.5 F 34 16 95/56 96 01/04/18 08:43 01/04/18 08:43 01/04/18 08:43 01/04/18 08:43 01/04/18 08:43 Oxygen Devices in Use Now: None Appearance: nad, pleasant Ears/Nose/Mouth/Throat: Clear Oropharnyx, Mucous Membranes Moist Neck: NL Appearance and Movements; NL JVP, Trachea Midline Respiratory: Symmetrical Chest Expansion and Respiratory Effort, Clear to Auscultation Cardiovascular: NL Sounds; No Murmurs; No JVD, RRR, No Edema Abdominal: NL Sounds; No Tenderness; No Distention Extremities: No Edema Skin: No Rash or Ulcers Neurological: Alert and Oriented x 3 Laboratory Results: 01/03/18 08:28 01/04/18 06:16 INR (Anticoag Therapy) 0.93 (0.77-1.02) 01/03/18 08:28 APTT 28.5 seconds (26.0-36.3) 01/03/18 08:28 Total Bilirubin 0.60 mg/dL (0.2-1.0) 01/03/18 08:28 AST 34 U/L (13-39) 01/03/18 08:28 ALT 37 U/L (7-52) 01/03/18 08:28 Alkaline Phosphatase 68 U/L (34-104) 01/03/18 08:28 Total Protein 6.4 g/dL (6.4-8.9) 01/03/18 08:28 Albumin 3.9 g/dL (3.2-5.2) 01/03/18 08:28 Globulin 2.5 g/dL (2-4) 01/03/18 08:28 Albumin/Globulin Ratio 1.6 (1-3) 01/03/18 08:28 TSH 1.65 mcIU/mL (0.34-5.60) 01/04/18 10:38 01/03/18 01/03/18 08:28 11:25 Troponin I 0.00 0.00 esr 8 10% monocytes (elevated) d-dimer < 200 Diagnostic Imaging: cxr admission: no acute findings echo 01/03/2018 (reviewed personally). Normal biventricular function, mild MR, mild-mod TR stress test today: normal stress ekg, DTS 14. MPI reviewed, mild inferior wall defect corrects on AC imaging (normal) EKG Data: ekg admission : sinus bradycardia 39 bpm, otherwise unremarkable Assessment/Plan Mr. Aguayo is being evaluated for chest pain and sinus bradycardia and symptoms yesterday. Ruled out for ACS and had normal stress test. - Episode yesterday on treadmill appeared not directly cardiac, likely related in part due to viral infection, may have been a vagal component. - Chest discomfort appears non-cardiac, likely musculoskeletal from weight lifting - Asymptomatic sinus bradycardia (see HPI) is not a concern. Avoid rate lowering agents - Patient can be discharged form a cardiac standpoint. Thank you for allowing me to participate in the cardiovascular care of this patient. Please do not hesitate to contact me with questions or concerns.
--- NOTE | 2018-01-04 14:56 | RAD ---
INDICATION: Chest pain. Bradycardia. COMPARISON: No relevant prior exams available on the [facility] – [place] PACS for comparison. TECHNIQUE: 10.420 mCi of Tc-99m Myoview were administered IV. SPECT images of the heart were obtained. Later on the same day. Under the direction of Dr. Blackman, an exercise stress test was performed. The patient achieved a peak heart rate of 161 bpm, 94 % of the age-predicted maximum. Subsequently, the patient was given an IV injection of 25.100 mCi Tc-99m Myoview. SPECT images of the heart were obtained and a gated wall motion study was performed. FINDINGS: Gated wall motion images were obtained at stress and demonstrate wall motion to be within normal limits. The calculated left ventricular ejection fraction is 64 % at stress. Estimated LEFT ventricular end diastolic volume is 130 mL. TID 0.96. Based on review of the attenuation corrected and non corrected images the distribution of radiopharmaceutical within the myocardium on the stress and rest images is within normal limits. No fixed or reversible regions of hypoperfusion evident. IMPRESSION: #. No compelling evidence for stress-induced ischemia or infarct. #. Dilated LEFT ventricle with estimated LEFT ventricular end-diastolic volume of 130 mL. #. Normal range estimated LEFT ventricular ejection fraction. ASSESSMENT: Low risk based on nuclear portion. Based on imaging criteria from ACC/AHA 2002 Guideline Update for the Management of Patients With Chronic Stable Angina Table 23. Noninvasive Risk Stratification.
--- NOTE | 2018-01-04 15:54 | PN ---
Progress Note - Progress Note Date of Service: 01/04/18 Note: Discharge Summary (continued). Investigations: TSH 1.65 FT4 0.79 T3 total 86 Cortisol 16.59 ESR 8 Patient Name: JALEESA NGO Medical Record#: [id number] Ordering Physician: Diogo Ashby MD Acct.#: [id number] : 1970 Age: 47 Sex: M Location: [address] [place] [address]/TELEMETRY Exam Date: 01/04/18 0808 ADM Status: ADM Tomas Order Information: NUCLEAR CARDIAC STRESS TEST Accession Number: [id number] CPT: 04092 INDICATION: Chest pain. Bradycardia. COMPARISON: No relevant prior exams available on the [facility] [place] PACS for comparison. TECHNIQUE: 10.420 mCi of Tc-99m Myoview were administered IV. SPECT images of the heart were obtained. Later on the same day. Under the direction of Dr. Blackman, an exercise stress test was performed. The patient achieved a peak heart rate of 161 bpm, 94 % of the age- predicted maximum. Subsequently, the patient was given an IV injection of 25.100 mCi Tc- 99m Myoview. SPECT images of the heart were obtained and a gated wall motion study was performed. FINDINGS: Gated wall motion images were obtained at stress and demonstrate wall motion to be within normal limits. The calculated left ventricular ejection fraction is 64 % at stress. Estimated LEFT ventricular end diastolic volume is 130 mL. TID 0.96. Based on review of the attenuation corrected and non corrected images the distribution of radiopharmaceutical within the myocardium on the stress and rest images is within normal limits. No fixed or reversible regions of hypoperfusion evident. IMPRESSION: #. No compelling evidence for stress-induced ischemia or infarct. #. Dilated LEFT ventricle with estimated LEFT ventricular end-diastolic volume of 130 mL. #. Normal range estimated LEFT ventricular ejection fraction. ASSESSMENT: Low risk based on nuclear portion. Based on imaging criteria from ACC/AHA 2002 Guideline Update for the Management of Patients With Chronic Stable Angina Table 23. Noninvasive Risk Stratification. <Electronically signed by Charly Reed MD in OV> 01/04/18 1453 Dictated By: Charly Reed MD Dictated Date/Time: 01/04/18 1453 Transcribed Date/Time: 01/04/18 1447 Copy to: CC:Diogo Ashby MD; Og Blackman DO; Sherwin Genao MD This report is only to be considered final once signed by the Provider(s) as displayed in the "<Electronically Signed by >" field (s). Absence of a signature indicates the report is in a draft status and still needs to be finalized. In the event this document was created by someone other than the signing Provider, the individual initiating the document will be listed in the "Entered by:" or "Dictated by:" fan. 1 of 2 Assessment/plan Chest pain is non-cardiac - the NM stress test was negative. Dr. Blackman has seen the patient in consultation and states this is non-cardiac. I have therefore discharged him home - he will follow up as an outpatient
== END 2018-01-04 16:20 | disposition home or self-care (01) ==
LOC: ED 07:25 → MEDTELE 15:37
PROVIDERS: ADMIT Internal Medicine; ATTEND Internal Medicine
DX: R07.9 Chest pain, unspecified (principal); R00.1 Bradycardia, unspecified; N17.9 Acute kidney failure, unspecified; I51.7 Cardiomegaly; Z88.5 Allergy status to narcotic agent; Z79.899 Other long term (current) drug therapy; R55 Syncope and collapse
CPT/HCPCS: 36415; 71045; 78452; 80048; 80053; 82533; 83605; 84439; 84443; 84479; 84484; 85025; 85379; 85610; 85652; 85730; 86618; 93005; 93017; 93306; 93880; 96361; 96374; 96376; 99284; A9270-GY; A9502; G0378; J2405; J2785

== ENCOUNTER 2019-06-09 09:00 | Observation (INO) | payer OTHER ==
[2019-06-09] MEDS ORDERED: Nitroglycerin TAB 0.4 MG* 0.4 MG TAB SL ONE (09:14)
[2019-06-09] MEDS ORDERED: Aspirin 81 mg CHEW TAB* 81 MG TAB.CHEW PO ONE (09:14)
--- NOTE | 2019-06-09 09:14 | ED ---
HPI Cardiac - HPI Summary HPI Summary: 48 y/o male presented to [facility] for chest pressure experienced 1 hour ago while in a cycling class. Pt endorses pain in his left arm, nausea, COMBS, and a sweet taste in the mouth but denies diaphoresis. Pt had a stress test in 2018 in which he passed out the first time but tried again the next day and successfully completed the test. Pt notes hx kidney stones and kidney surgery and denies hx of blood clots. He drinks alcohol occasionally, takes short flights about twice a week, and has taken NTG before. Pt notes fhx of OR in his father as well as his aunt, both of whom were in their 70s when OR occurred. Medications reviewed. Allergies noted. Home Medications Medication Instructions Recorded Confirmed Type Acetaminophen TAB* [Tylenol TAB*] 650 mg PO Q4H PRN tab 01/04/18 Rx Ibuprofen TAB* [Advil TAB*] 400 mg PO Q6H PRN 06/09/19 06/09/19 History - History of Current Complaint Chief Complaint: EDChestPainROMI Stated Complaint: CHEST PAIN/NAUSEA PER PT Time Seen by Provider: 06/09/19 09:07 Hx Obtained From: Patient Onset/Duration: Started Hours Ago Timing: Lasting Hours Current Severity: Moderate Pain Intensity: 4 Pain Scale Used: 0-10 Numeric Chest Pain Radiates To:: Arm - left Character: Pressure/Squeezing Aggravating Factor(s): Nothing Alleviating Factor(s): Nothing Associated Signs and Symptoms: Positive: Headaches, Nausea, Other: - positive - chest pressure, sweet taste in mouth; negative - diaphoresis - Additional Pertinent History Primary Care Physician: [id number] - Allergy/Home Medications Allergies/Adverse Reactions: Allergies Allergy/AdvReac Type Severity Reaction Status Date / Time fentanyl Allergy Severe See Comment Verified 06/09/19 09:17 midazolam [From Versed] Allergy Severe See Comment Verified 06/09/19 09:17 Home Medications: Home Medications Acetaminophen TAB* [Tylenol TAB*] 650 mg PO Q4H PRN tab 01/04/18 [Rx Confirmed 06/09/19] Ibuprofen TAB* [Advil TAB*] 400 mg PO Q6H PRN 06/09/19 [History Confirmed ] PMH/Surg Hx/FS Hx/Imm Hx Endocrine/Hematology History: Reports: Hx Thyroid Disease Denies: Hx Anticoagulant Therapy, Hx Diabetes, Hx Anemia Cardiovascular History: Denies: Hx Angina, Hx Coronary Artery Disease, Hx Hypercholesterolemia, Hx Hypertension, Hx Myocardial Infarction, Hx Pacemaker/ICD, Hx Peripheral Vascular Disease, Hx Valvular Heart Disease Respiratory History: Denies: Hx Asthma, Hx Chronic Obstructive Pulmonary Disease (COPD) GI History: Reports: Other GI Disorders - ABD PAIN 2 MONTH AGO Denies: Hx Jaundice History: Reports: Hx Kidney Stones - BILATERAL, BEING WATCHED, Hx Renal Disease - Hx of Kidney Stones, Other Problems/Disorders - LITHOTRIPSY 2014 Musculoskeletal History: Reports: Hx Back Problems, Other Musculoskeletal History - OCCASIONAL BACK PAIN FROM KIDNEY STONES BILATERAL Sensory History: Denies: Hx Contacts or Glasses, Hx Eye Injury - Metal was removed from left eye in 2011, Hx Hearing Aid Opthamlomology History: Denies: Hx Contacts or Glasses, Hx Eye Injury - Metal was removed from left eye in 2011 Neurological History: Reports: Hx Headaches Denies: Hx Seizures, Hx Transient Ischemic Attacks (TIA) Psychiatric History: Denies: Hx Panic Disorder - Surgical History Surgery Procedure, Year, and Place: 1986 LEFT KNEE SURGERY TO REMOVE BONE SPUR, [place]. 04/2012 CYSTOSCOPY, LEFT RETROGRADE PYELOGRAM, LEFT URETEROSCOPY, EXTRACTION OF CALCULUS FROM LEFT URETER, [place] [facility] [place] RIGHT RETROGRADE, RIGHT URETERAL CALCULUS MANIPULATION, [place] [facility] [place]2012 [place]SW[place] RIGHT [place] [facility] [place] KIDNEY STONE[place] [facility] [place] Anesthesia Reactions: Yes - STATES SEIZURE WITH ANESTHETIC (?FENTANYL) Infectious Disease History: No Infectious Disease History: Denies: Hx Clostridium Difficile, Hx Hepatitis, Hx Human Immunodeficiency Virus (HIV), Hx of Known/Suspected MRSA, Hx Shingles, Hx Tuberculosis, Traveled Outside the [place] in Last 30 Days - Family History Known Family History: Positive: Cardiac Disease - aunt (age 70), grandfather ( in his 30s), Hypertension - Social History Alcohol Use: Rare Substance Use Type: Reports: None Smoking Status (MU): Never Smoked Tobacco Review of Systems Negative: Skin Diaphoresis Positive: Other - sweet taste in mouth Positive: Other - chest pressure, left arm pain Positive: Nausea Positive: Headache All Other Systems Reviewed And Are Negative: Yes Physical Exam - Summary Physical Exam Summary: Constitutional: Well-developed, Well-nourished, Alert. (-) Distressed Skin: Warm, Dry HENT: Normocephalic; Atraumatic Eyes: Conjunctiva normal Neck: Musculoskeletal ROM normal neck. (-) JVD, (-) Stridor, (-) Tracheal deviation Cardio: Rhythm regular, rate normal, Heart sounds normal; Intact distal pulses; Radial pulses are 2+ and symmetric. (-) Murmur Pulmonary/Chest wall: Effort normal. (-) Respiratory distress, (-) Wheezes, (-) Rales Abd: Soft, (-) tenderness, (-) Distension, (-) Guarding, (-) Rebound Musculoskeletal: (-) Edema, Good pulses bilaterally in radius, No calf tenderness, No venous cords, No pain with dorsiflexion of foot. Lymph: (-) Cervical adenopathy Neuro: Alert, Oriented x3 Psych: Mood and affect Normal Triage Information Reviewed: Yes Vital Signs On Initial Exam: Initial Vitals Temp Pulse Resp BP Pulse Ox 98.2 F 60 12 151/74 98 06/09/19 09:01 06/09/19 09:01 06/09/19 09:01 06/09/19 09:01 06/09/19 09:01 Vital Signs Reviewed: Yes Procedures - Sedation Patient Received Moderate/Deep Sedation with Procedure: No Diagnostics - Vital Signs Vital Signs Temp Pulse Resp BP Pulse Ox 06/09/19 09:01 98.2 F 60 12 151/74 98 - Laboratory Result Diagrams: 06/09/19 09:16 06/09/19 09:16 Lab Statement: Any lab studies that have been ordered have been reviewed, and results considered in the medical decision making process. - Radiology cxr Radiology Interpretation Completed By: Radiologist Summary of Radiographic Findings: IMPRESSION: No radiographic evidence of acute cardiopulmonary disease. This report was reviewed by the ED physician. - EKG 09 Cardiac Rate: Bradycardia EKG Rhythm: Sinus Bradycardia Summary of EKG Findings: EKG at 905 shows sinus bradycardia at 59bpm. T-wave inversions in III, similar to prior. Flatterning in avF. Otherwise unchanged from prior on 01/03/18. No STEMI. This EKG was reviewed and interpreted by the ED physician. Re-Evaluation - Re-Evaluation First Eval Re-Evaluation Time: 09:44 Comment: Prior to receiving NTG pt complained of severe COMBS he has had before. After NTG chest pressure improved. Will give Morphine and Zofran for COMBS and nausea. Disposition - Course Course Of Treatment: Patient is here with chest pain that reduced on his left arm that occurred during exertion. Patient was given nitroglycerin with improvement in his symptoms. Patient was also given aspirin here. Patient is PERC negative and his story is not consistent with dissection. Patient had an EKG which showed new T-wave flattening in aVF. Given patient's heart score of 4 , patient was admitted to the hospital for further workup. - Diagnoses Provider Diagnoses: Chest pain - Physician Notifications Discussed Care Of Patient With: Chata Polanco Time Discussed With Above Provider: 11:20 Instructed by Provider To: Other - Pt case was discussed with Dr. Polanco, who agreed to admit the pt. Discharge ED - Sign-Out/Discharge Documenting (check all that apply): Patient Departure - admit - Discharge Plan Condition: Stable Disposition: ADMITTED TO [facility] - Billing Disposition and Condition Condition: STABLE Disposition: Admitted to [facility] - Attestation Statements Document Initiated by Scribe: Yes Documenting Scribe: Osmani Cooney Provider For Whom Herlindae is Documenting (Include Credential): Desmond Medina MD Scribe Attestation: Osmani Pete, scribed for Desmond Medina MD on 06/09/19 at 1803. Scribe Documentation Reviewed: Yes Provider Attestation: The documentation as recorded by the Osmani de leon accurately reflects the service I personally performed and the decisions made by me, Desmond Medina MD Status of Scribe Document: Viewed
[2019-06-09 09:26] LABS: ABS Eosinophils 0.1 10^3/ul (0-0.6); ABS Lymphocytes 0.7 10^3/ul (1.0-4.8); ABS Monocytes 0.4 10^3/ul (0-0.8); ABS Neutrophils 9.3 10^3/ul (1.5-7.7); Eosinophil % 0.6 %; Hematocrit 41 % (42-52); Hemoglobin 14.5 g/dL (14.0-18.0); Lymphocyte % 7.1 %; Mean Corpuscular HGB Conc 35 g/dL (31-36); Mean Corpuscular Hemoglobin 32 pg (27-31); Mean Corpuscular Volume 89 fL (80-94); Mean Platelet Volume 7.2 fL (7.4-10.4); Platelet Count 261 10^3/uL (150-450); Red Cell Distribution Width 13 % (10-15); White Blood Count 10.5 10^3/uL (3.5-10.8)
[2019-06-09] MEDS ORDERED: NS 0.9% 1000 ML** 1,000 ML IV ONE (09:32)
[2019-06-09] MEDS ORDERED: Morphine 4 MG/ML VIAL (1 ml) 4 MG/ML VIAL IV ONE ×2 (09:32→23:06)
[2019-06-09] MEDS ORDERED: Ondansetron INJ* 2 MG/ML VIAL IV ONE (09:36)
[2019-06-09 09:47] LABS: Albumin 4.4 g/dL (3.2-5.2); Albumin/Globulin Ratio 1.7 (1-3); BUN/Creatinine Ratio 14.5 (8-20); Calcium 9.6 mg/dL (8.6-10.3); EGFR African American 53.5 (>60); EGFR Non-African American 44.3 (>60); Globulin 2.6 g/dL (2-4); Potassium 3.6 mmol/L (3.5-5.0); Total Bilirubin 0.6 mg/dL (0.2-1.0)
[2019-06-09] MEDS ORDERED: NS 0.9% 1000 ML** 1,000 ML IV SCH (11:30)
[2019-06-09] MEDS: Acetaminophen TAB* 325 MG PO PRN ×2 (13:01→20:09)
[2019-06-09] MEDS: Enoxaparin(*) 40 MG/0.4 ML SYR SUBCUT SCH (13:02)
--- NOTE | 2019-06-09 15:52 | HP ---
CC: Diogo Ashby MD * HISTORY AND PHYSICAL: DATE OF ADMISSION: 06/09/19 PRIMARY CARE PROVIDER: Diogo Ashby MD ATTENDING PHYSICIAN: Chata Polanco DO * (dictated by ROBERT Phan). CHIEF COMPLAINT: 1. Chest pain. 2. Dizziness. 3. Nausea. HISTORY OF PRESENT ILLNESS: Mr. Aguayo is a 48-year-old male with nephrolithiasis only that required 3 to 4 stents in the past, who presented to the ER today with complaints of chest pressure. He reports that he has had intermittent chest pressure for approximately 1 week. This morning, he was at the gym, riding a bicycle with moderate intensity and suddenly developed chest pressure, nausea, and dizziness. He stopped using the bicycle, at which point he reports that his pain worsened. He drove home and then his drove him to the hospital. He reports that he developed a headache upon arrival to the ER. He reports that his chest pressure radiates down the left arm and up the neck, but does not reach the jaw. He received nitro, morphine, ondansetron, and aspirin in ER and believes that nitro helped with his pain. He does report that the pain worsened when he stopped riding his bike. The patient reports weekly airplane travel to [place] and back. He reports that his pain is nonpleuritic. He does not have any new medications. He reports that he had pain similar to this in 2018 without nausea and received a full workup at that time. In December 2017, transthoracic echo showed EF of 55% to 60%, normal LV diastolic filling pattern, no regional wall motion abnormalities. Nuclear medicine stress test shows dilated LV without evidence of ischemia and was reportedly low risk. HEART score today is calculated to be 4, a moderate score placing him at risk of may be between 12% to 16.6%. In the ER, the patient received a full workup. CBC was unremarkable. Creatinine was mildly elevated at 1.66 (baseline is approximately 1.30). Troponin is 0.00 x1. EKG shows a rate of 59 with T-wave inversions in lead III and V1 which are unchanged from December 2017. AVF has a flat T-wave which is new compared to 2018 EKG. Chest x-ray was unremarkable. In the ER, the patient received aspirin 324 mg p.o., morphine 4 mg IV, nitroglycerin 0.4 mg sublingual, ondansetron 4 mg IV, and 1 L normal saline bolus. Hospitalist team was asked to evaluate the patient for admission. PAST MEDICAL HISTORY: History of nephrolithiasis, requiring 3 to 4 stents; he follows with Dr. Brennan. PAST SURGICAL HISTORY: Hernia, multiple ureteral stents. HOME MEDICATIONS: 1. Acetaminophen 650 mg p.o. q.4 hours p.r.n. pain. 2. Ibuprofen 400 mg p.o. q.6 hours p.r.n. pain. DRUG ALLERGIES: FENTANYL, dystonia; MIDAZOLAM, dystonia. FAMILY HISTORY: Mother had COPD. Father unknown. Paternal grandfather had diabetes and in his 70s from CAD. Paternal grandmother had diabetes and in her 80s from CAD; paternal grandmother also had colon cancer. Maternal grandmother in her 70s from CAD. Maternal grandfather in 60s from CAD. SOCIAL HISTORY: The patient denies current or former use of tobacco. He drinks socially, less than weekly. He does not use any illicit drugs. 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 He is relatively active. He notes that he works out 6 to 7 times per week until the last approximately 2 months where he reports new onset of low energy and has been working out 2 to 3 times per week the last 2 months. He is , with 2 children. In the event that he is unable to make his own medical decisions, he has appointed his , Arcelia Aguayo, to be his surrogate decision maker. REVIEW OF SYSTEMS: A 14-point review of systems has been performed and all the pertinent positives and negatives are in the HPI. All other systems are negative. PHYSICAL EXAMINATION GENERAL: Mr. Aguayo is a well-developed, well-nourished, slightly overweight middle-aged white male, who is sitting up in bed. He appears mildly uncomfortable and is squinting when we speak. He does not appear to be in any acute distress and is breathing comfortably on room air. HEENT: PERRL. EOMI. Visual fan are grossly intact, although the patient does report diplopia, which he reports is his baseline. Hearing is grossly intact. Oral mucous membranes are moist. There are no lesions. The pharynx is clear without exudate or erythema. Tongue is at midline. Palate elevates symmetrically. PULMONARY: Symmetrical chest expansion without use of accessory muscles. Lungs are clear to auscultation bilaterally without rhonchi, wheeze, or rales. CARDIOVASCULAR: Sinus bradycardia. S1 and S2 present without murmurs, rubs, clicks, or gallops. There is no JVD. There is no lower extremity edema. Chest wall nontender to palpation. ABDOMEN: Bowel sounds in all quadrants. Soft and nontender to palpation. MUSCULOSKELETAL: Full range of motion, nonpainful, nontender to palpation. NEUROLOGIC: The patient is awake. He is alert and oriented x3. Cranial nerves II through XII are grossly intact. He is able to move all of his extremities. Motor strength is 5/5 bilaterally in upper and lower extremities. DIAGNOSTIC STUDIES/LAB DATA: 1. CBC: WBC 10.5, RBC 4.6, hemoglobin 14.5, hematocrit 41, MCV 89, platelets 261. 2. CMP: Sodium 140, potassium 3.6, chloride 106, carbon dioxide 28, BUN 24, creatinine 1.66, glucose 116. Troponin 0.00. 3. EKG, rate 59, T-wave inversion in lead III and V1 (unchanged from December 2017), flat T-wave in aVF (new). 4. Chest x-ray, impression: No radiographic evidence of acute cardiopulmonary disease. ASSESSMENT AND PLAN: Mr. Aguayo is a 48-year-old male with a family history of due to coronary artery disease and no significant past medical history , who presented to the ER today with complaints of chest pain brought on by exercise. The patient will be admitted for: 1. Chest pain, rule out acute coronary syndrome. The patient presents with chest pain brought on by exercise that he reports was worsened with discontinuation of exercise and relieved after nitro. He reports weekly airplane travel. He has no past medical history. He appears to be relatively active and exercises 2 to 3 times per week. Cardiac exam is benign except for sinus bradycardia, which appears to be at the patient's baseline. He will be admitted and we will work up acute coronary syndrome rule out. Stress test will be performed in the morning. We will continue to trend troponins and repeat an EKG in the morning. He will continue aspirin 81 mg daily starting tomorrow; he has received 324 mg p.o. today. He will be admitted on telemetry. Due to the patient's frequent travel, there is some concern for pulmonary embolism despite the patient's relative bradycardia and nonpleuritic chest pain. A D-dimer will be added on to today's labs. We will also risk stratify with hemoglobin A1c and lipids in the morning. 2. Acute kidney injury on chronic kidney disease. The patient has a mild acute kidney injury. It appears that he has baseline chronic kidney disease with baseline creatinine of around 1.30. Today's creatinine is 1.66. He has received 1 L of fluid bolus. I will continue him on 1 L of maintenance fluids at 100 cc per hour and then discontinue IV fluids. We should recheck creatinine in the a.m. to assess for improvement in renal function. 3. History of nephrolithiasis. The patient reports history of nephrolithiasis , but is asymptomatic at this time. He follows with Dr. Brennan. 4. DVT prophylaxis: According to the DVT Risk Assessment, the patient scores 2 , placing him at moderate risk. He has been started on Lovenox. 5. Code status: Full code. TIME SPENT: Approximately 60 minutes was spent on this admission, greater than half that time was spent [id number] with the patient and his obtaining history, performing physical, and reviewing the plan of care. The case has been discussed with my attending, Dr. Polanco, who is in agreement with the plan of care. ROBERT KEYS [id number]/[facility] #: [id number] YOVANA
[2019-06-09] MEDS ORDERED: Ibuprofen TAB* 600 MG PO ONE (16:17)
[2019-06-09] MEDS ORDERED: Morphine INJ* 4 MG/ML 1 ML SYRINGE (NEW SYRINGE VERSION) IV ONE (23:10)
[2019-06-09] MEDS ORDERED: Ondansetron INJ* 2 MG/ML VIAL IV PRN (23:12)
--- NOTE | 2019-06-09 23:41 | PN ---
Hospitalist Progress Note Date of Service: 06/09/19 Called to bedside for bradycardia and chest pain. Patient hr 39. Denies sob, denies lightheadedness, denies dizziness. Admits to left sided chest pain. He denies sob, denies diaphoresis, denies nausea. He states that the pain has been intermittent for the last week. Admits to numbness in the left arm, It is 9/10. Repeat EKG ordered unchanged, [facility] he has longstanding bradycardia. BP stable in both arms, dimer negative, having a frontal headache as well, will repeat trops, will check ct brain and give 4 mg morphine for the chest pain, etiology of the chest pain unclear, however i am reassures given the three negative trops and non evolving ekg, will try morphine now, stress ordered for the am, discuss with Dr waldron she is in agreement,
[2019-06-10] MEDS: Acetaminophen TAB* 325 MG PO PRN ×3 (00:11→13:33)
[2019-06-10] MEDS ORDERED: Morphine INJ* 2 MG/ML 1 ML SYRINGE (TWO MG - NEW SYRINGE VERSION) IV ONE (05:12)
[2019-06-10 05:34] LABS: BUN/Creatinine Ratio 16.7 (8-20); Calcium 8.3 mg/dL (8.6-10.3); EGFR African American 66.3 (>60); EGFR Non-African American 54.8 (>60); HDL Cholesterol 35.8 mg/dL; Potassium 3.8 mmol/L (3.5-5.0)
--- NOTE | 2019-06-10 07:17 | PN ---
Subjective - Subjective Reason for Note: Discharge Note History: Discharge summary: I obtained his presentation from Jaleesa Ngo and ROBERT Naik's admitting history and physical. He travels every week for work and was in [place] last week. The night before presentation he ate yoruba toast for dinner. Yesterday, he had no breakfast and headed for the gym. He had some chest pressure. This worsened during treadmill exercise - heart rate 140 bpm. He developed nausea and sweating, the pressure was 8/10 and radiated to his left arm. He had a stomach ache and nausea. He developed a headache in the Emergency Room but maintains this was prior to receiving nitroglycerine. This morning he is feeling well and without any chest pain, dyspnea, palpitations, nausea. His headache has improved. He has a sinus bradycardia on telemetry in the 30s. Current Medications: Current Medications Acetaminophen (Tylenol Tab*) 650 mg PO Q4H PRN PRN Reason: mild to moderate pain Last Admin: 06/10/19 00:11 Dose: 650 mg Aspirin (Aspirin 81 Mg Chew Tab*) 81 mg PO DAILY EDNA Enoxaparin Sodium (Lovenox(*)) 40 mg SUBCUT Q24H EDNA Last Admin: 06/09/19 13:02 Dose: 40 mg Ondansetron HCl (Zofran Inj*) 4 mg IV Q6H PRN PRN Reason: NAUSEA Last Admin: 06/09/19 23:20 Dose: 4 mg Home Medications: Home Medications Medication Instructions Recorded Confirmed Type Acetaminophen TAB* [Tylenol TAB*] 650 mg PO Q4H PRN tab 01/04/18 06/09/19 Rx Ibuprofen TAB* [Advil TAB*] 400 mg PO Q6H PRN 06/09/19 06/09/19 History Allergies: Allergies Allergy/AdvReac Type Severity Reaction Status Date / Time fentanyl Allergy Severe See Comment Verified 06/09/19 09:17 midazolam [From Versed] Allergy Severe See Comment Verified 06/09/19 09:17 Objective - Vital Signs Vital Signs: Vital Signs 06/09/19 06/09/19 06/09/19 09:01 09:12 09:13 Temperature 98.2 F Pulse Rate 60 56 Respiratory 12 17 18 Rate Blood Pressure 151/74 135/81 (mmHg) O2 Sat by Pulse 98 96 Oximetry 06/09/19 06/09/1906/08/20 09:28 09:38 09:41 Temperature Pulse Rate 58 52 Respiratory 23 21 18 Rate Blood Pressure 115/65 126/73 (mmHg) O2 Sat by Pulse 94 95 Oximetry 06/09/19 06/09/19 06/09/19 09:48 09:58 10:00 Temperature Pulse Rate 57 52 50 Respiratory 20 14 18 Rate Blood Pressure 107/70 121/73 (mmHg) O2 Sat by Pulse 95 96 96 Oximetry 06/09/19 06/09/19 06/09/19 10:08 10:18 10:28 Temperature Pulse Rate 48 50 Respiratory 15 25 Rate Blood Pressure 112/60 113/67 109/68 (mmHg) O2 Sat by Pulse 94 95 Oximetry 06/09/19 06/09/19 06/09/19 10:38 10:48 11:00 Temperature Pulse Rate 48 46 47 Respiratory 7 Rate Blood Pressure 108/69 109/65 (mmHg) O2 Sat by Pulse 94 96 96 Oximetry 06/09/19 06/09/19 06/09/19 11:09 11:18 11:28 Temperature Pulse Rate 46 46 46 Respiratory Rate Blood Pressure 106/61 112/69 115/68 (mmHg) O2 Sat by Pulse 97 98 98 Oximetry 06/09/19 06/09/19 06/09/19 11:38 12:44 12:54 Temperature 98.3 F 98.0 F Pulse Rate 48 47 44 Respiratory 12 16 Rate Blood Pressure 121/69 110/65 114/65 (mmHg) O2 Sat by Pulse 98 98 99 Oximetry 06/09/19 06/09/19 06/09/19 15:15 19:15 22:43 Temperature 97.2 F 97.7 F 97.4 F Pulse Rate 40 50 37 Respiratory 16 16 16 Rate Blood Pressure 104/57 115/64 112/60 (mmHg) O2 Sat by Pulse 97 98 96 Oximetry 06/09/19 06/09/19 06/09/19 23:00 23:13 23:31 Temperature 97 F Pulse Rate 39 Respiratory 16 17 Rate Blood Pressure 104/60 117/75 (mmHg) O2 Sat by Pulse 96 Oximetry 06/10/19 06/10/19 06/10/19 00:44 02:45 05:21 Temperature 97.4 F Pulse Rate 47 Respiratory 16 16 17 Rate Blood Pressure 94/47 (mmHg) O2 Sat by Pulse 97 Oximetry 06/10/19 07:09 Temperature Pulse Rate Respiratory 16 Rate Blood Pressure (mmHg) O2 Sat by Pulse Oximetry - Intake and Output Intake and Output: Intake & Output 06/07/19 06/08/19 06/09/19 06/10/19 11:59 11:59 11:59 11:59 Intake Total 1000 1560 Balance 1000 1560 Weight 170 lb 186 lb 3.2 oz Intake: IV Fluids 1000 1000 Oral 560 Other: Estimated Void Medium ADLs: Meal Record Start: 06/09/19 12: 54 Freq: DAILY@0900,1400,1800 Status: Active Protocol: Created 06/09/19 12:54 System (Rec: 06/09/19 12:54 System [id number]) Document 06/09/19 14:00 [id number] (Rec: 06/09/19 14:26 [id number] TELE-C09) Document 06/09/19 18:00 [id number] (Rec: 06/09/19 18:45 [id number] TELE-C11) Intake and Output Start: 06/09/19 09: 08 Freq: Status: Active Protocol: Created 06/09/19 09:08 System (Rec: 06/09/19 09:08 System [id number]) Intake and Output Start: 06/09/19 12: 54 Freq: DAILY@0600,1400,2200 Status: Active Protocol: Created 06/09/19 12:54 System (Rec: 06/09/19 12:54 System TELE-C15) Document 06/09/19 14:00 [id number] (Rec: 06/09/19 14:44 [id number] TELE-C13) Document 06/09/19 21:49 [id number] (Rec: 06/09/19 21:51 [id number] TELE-C11) Document 06/10/19 05:34 [id number] (Rec: 06/10/19 05:34 [id number] TELE-C11) - Physical Exam General Physical Exam Comment: He is looking healthy and in no acute distress General: No Cyanosis, No Anemia, No Jaundice, No Clubbing Lungs and Chest: Yes: Chest Expansion Full, Chest Expansion Symetrica, Percussion Note Resonant, Vessicular Breath Sounds. No: Crackles, Wheezes Heart Rate and Rhythm: Regular JVP: Not Elevated Additional Cardiovascular: Yes: Normal Heart Sounds. No: Heart Murmur, Pedal Edema Abdominal Exam: Yes: Soft, Bowel Sounds Present. No: Distention, Abdominal Tenderness - Extremities Cranial Nerves II-XII Intact: Yes Limbs: Normal Power, Normal Tone - Neuro Orientation: A/O x3 Psychiatric: Normal Speech: Normal Results - Results Lab Results: Laboratory Results - last 24 hr 06/09/19 06/09/19 06/09/19 09:16 09:16 09:16 WBC 10.5 RBC 4.60 Hgb 14.5 Hct 41 L MCV 89 MCH 32 H MCHC 35 RDW 13 Plt Count 261 MPV 7.2 L Neut % (Auto) 88.2 Lymph % (Auto) 7.1 [place] % (Auto) 3.7 Eos % (Auto) 0.6 Baso % (Auto) 0.4 Absolute Neuts (auto) 9.3 H Absolute Lymphs (auto) 0.7 L Absolute Monos (auto) 0.4 Absolute Eos (auto) 0.1 Absolute Basos (auto) 0.0 Absolute Nucleated RBC 0.0 Nucleated RBC % 0.0 D-Dimer, Quantitative < 200 Sodium 140 Potassium 3.6 Chloride 106 Carbon Dioxide 28 Anion Gap 6 BUN 24 Creatinine 1.66 H Est GFR ( Amer) 53.5 Est GFR (Non-Af Amer) 44.3 BUN/Creatinine Ratio 14.5 Glucose 116 H Hemoglobin A1c Calcium 9.6 Total Bilirubin 0.60 AST 24 ALT 24 Alkaline Phosphatase 60 Troponin I 0.00 Total Protein 7.0 Albumin 4.4 Globulin 2.6 Albumin/Globulin Ratio 1.7 Triglycerides Cholesterol LDL Cholesterol HDL Cholesterol 06/09/19 06/09/19 06/09/19 09:16 12:14 14:53 WBC RBC Hgb Hct MCV MCH MCHC RDW Plt Count MPV Neut % (Auto) Lymph % (Auto) [place] % (Auto) Eos % (Auto) Baso % (Auto) Absolute Neuts (auto) Absolute Lymphs (auto) Absolute Monos (auto) Absolute Eos (auto) Absolute Basos (auto) Absolute Nucleated RBC Nucleated RBC % D-Dimer, Quantitative Sodium Potassium Chloride Carbon Dioxide Anion Gap BUN Creatinine Est GFR ( Amer) Est GFR (Non-Af Amer) BUN/Creatinine Ratio Glucose Hemoglobin A1c 5.3 Calcium Total Bilirubin AST ALT Alkaline Phosphatase Troponin I 0.01 0.01 Total Protein Albumin Globulin Albumin/Globulin Ratio Triglycerides Cholesterol LDL Cholesterol HDL Cholesterol 06/09/19 06/10/19 06/10/19 22:45 01:41 05:06 WBC RBC Hgb Hct MCV MCH MCHC RDW Plt Count MPV Neut % (Auto) Lymph % (Auto) [place] % (Auto) Eos % (Auto) Baso % (Auto) Absolute Neuts (auto) Absolute Lymphs (auto) Absolute Monos (auto) Absolute Eos (auto) Absolute Basos (auto) Absolute Nucleated RBC Nucleated RBC % D-Dimer, Quantitative Sodium 140 Potassium 3.8 Chloride 111 Carbon Dioxide 27 Anion Gap 2 BUN 23 Creatinine 1.38 H Est GFR ( Amer) 66.3 Est GFR (Non-Af Amer) 54.8 BUN/Creatinine Ratio 16.7 Glucose 96 Hemoglobin A1c Calcium 8.3 L Total Bilirubin AST ALT Alkaline Phosphatase Troponin I 0.01 0.00 Total Protein Albumin Globulin Albumin/Globulin Ratio Triglycerides 79 Cholesterol 135 LDL Cholesterol 83 HDL Cholesterol 35.8 06/10/19 05:06 WBC RBC Hgb Hct MCV MCH MCHC RDW Plt Count MPV Neut % (Auto) Lymph % (Auto) [place] % (Auto) Eos % (Auto) Baso % (Auto) Absolute Neuts (auto) Absolute Lymphs (auto) Absolute Monos (auto) Absolute Eos (auto) Absolute Basos (auto) Absolute Nucleated RBC Nucleated RBC % D-Dimer, Quantitative Sodium Potassium Chloride Carbon Dioxide Anion Gap BUN Creatinine Est GFR ( Amer) Est GFR (Non-Af Amer) BUN/Creatinine Ratio Glucose Hemoglobin A1c Calcium Total Bilirubin AST ALT Alkaline Phosphatase Troponin I 0.00 Total Protein Albumin Globulin Albumin/Globulin Ratio Triglycerides Cholesterol LDL Cholesterol HDL Cholesterol Radiology Results: Patient Name: JALEESA NGO Medical Record#: [id number] Ordering Physician: Desmond Medina MD Acct.#: [id number] : 1970 Age: 48 Sex: M Location: EMERGENCY DEPARTMENT Exam Date: 06/09/19906 ADM Status: REG ER Order Information: CHEST PA & LAT 2 VWS Accession Number: [id number] CPT: 21690 INDICATION: Chest pain COMPARISON: Chest x-ray January 03, 2018 TECHNIQUE: PA and lateral views of the chest were obtained. FINDINGS: The heart and mediastinum are normal in size and contour. The lungs are grossly clear. There is no evidence of large pleural effusion. Visualized bones are normal for the patient's age. There is no radiographic evidence of free air beneath the diaphragm IMPRESSION: No radiographic evidence of acute cardiopulmonary disease. <Electronically signed by Douglas Umanzor MD in OV> 06/09/19 1010 Dictated By: Douglas Umanzor MD Dictated Date/Time: 06/09/19 1002 Transcribed Date/Time: 06/09/19 1002 Copy to: EKG Report: All his EKGs on this admission show sinus bradycardia - he has no evidence of ischemia. 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 Radiation optimization: All CT scans at this facility use at least one of these dose optimization techniques: automated exposure control; mA and/or kV adjustment per patient size (includes targeted exams where dose is matched to clinical indication); or iterative reconstruction. COMPARISON: BRAIN WO CT BRAIN WO 12/09/2015 5:21 PM FINDINGS: Brain: No acute intracranial hemorrhage or extraaxial collection identified. Butts/white differentiation is maintained with no evidence of acute infarct. Ventricles: Normal configuration. No hydrocephalus. Bones/joints: No acute fracture. Sinuses: Mild left maxillary sinus mucosal thickening. No air-fluid levels. Mastoid air cells: No mastoid effusion. Soft tissues: Normal. IMPRESSION: No acute intracranial findings. Dictated and Authenticated by: Sara Andrews MD 06/10/2019 12:14 AM Eastern Time ([place] and [place]) To contact [facility] with a general question: [facility] - [phone] For direct physician to physician contact: Physician Hotline - [phone] [facility] ([facility] Facility ID #[id number]) <Electronically signed by Sara Andrews MD in OV> 06/10/19 0014 Dictated By: Sara Andrews MD Dictated Date/Time: 06/09/192333 Transcribed Date/Time: 06/09/192333 Copy to: Assessment - Problem List Assessment: Patient Problems Bradycardia (Acute) Chest pain (Acute) Headache (Acute 03/31/14) DVT prophylaxis (Chronic 03/31/14) Full code status (Chronic 03/31/14) History of lithotripsy (Chronic 03/31/14) History of umbilical hernia repair (Chronic) Nephrolithiasis (Chronic) Plan: Chest pain (Acute) He presents with severe chest pain with characteristics that resemble angina. He had a similar presentation 01/03/18 and a negative stress test. We will repeat this investigation today. If it is positive cardiology will consult and consider a cardiac catheterization. If it is negative, I will evaluate the possibility of esophagitis as an outpatient. 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 His CT head was normal. He has a normal neurological examination Comorbidities: DVT prophylaxis (Chronic 03/31/14) Full code status (Chronic 03/31/14) History of lithotripsy (Chronic 03/31/14) History of umbilical hernia repair (Chronic) Nephrolithiasis (Chronic) I discussed the above with the patient. If we rule out cardiac issues, I will discharge him home. He will stay and have a cardiology consultation if he has a positive or equivocal stress test. Condition: good Disposition: home
[2019-06-10] MEDS ORDERED: Aspirin 81 mg CHEW TAB* 81 MG TAB.CHEW PO SCH (09:00)
[2019-06-10] MEDS: Enoxaparin(*) 40 MG/0.4 ML SYR SUBCUT SCH (13:33)
[2019-06-10 16:15] VITALS: BP 119/69
== END 2019-06-10 16:45 | disposition home or self-care (01) ==
LOC: ED 09:00 → MEDTELE 11:24
PROVIDERS: ADMIT Hospitalist; ATTEND Internal Medicine
DX: R07.9 Chest pain, unspecified (principal); R42 Dizziness and giddiness; R11.0 Nausea; N17.9 Acute kidney failure, unspecified; N18.9 Chronic kidney disease, unspecified; E07.9 Disorder of thyroid, unspecified; Z82.49 Family history of ischemic heart disease and other diseases of the circulatory system; Z87.442 Personal history of urinary calculi; Z79.899 Other long term (current) drug therapy; Z88.8 Allergy status to other drugs, medicaments and biological substances; R00.1 Bradycardia, unspecified
CPT/HCPCS: 36415; 70450; 71046; 78452; 80048; 80053; 80061; 83036; 84484; 85025; 85379; 93005; 93017; 96361; 96372; 96374; 96375; 96376; 99284; A9270-GY; A9502; G0378; J1650; J2270; J2405